=== PATIENT | male | born 2000 | race Caucasian/White ===

== ENCOUNTER 2022-05-27 10:38 | Emergency (ER) | payer SELFPAY ==
[~2022-05-27] VITALS: Ht 190 cm; Wt 72.0 kg
[2022-05-27 10:45] VITALS: BP 121/70
[2022-05-27] MEDS ORDERED: RT-ALBUTEROL HFA 8.5 GM INHALER IH STA (11:06)
--- NOTE | 2022-05-27 11:13 | ED Cough/URI ---
General Chief Complaint: Cough/Cold/Flu Symptoms Stated Complaint: RESPIRATORY ILLNESS Nursing Triage Note: ARRIVED VIA AMB TO TRIAGE WITH COMPLAINTS OF COUGH, FEVER, BODYACHES, HURTS TO COUGH AND BREATHE. WAS SEEN YESTERDAY AND TESTED NEG FOR EVERYTHING. PT ALSO BROUGHT HIS CHILD TO BE SEEN. Source: patient Exam Limitations: no limitations History of Present Illness Date Seen by Provider: May 27, 2022 Time Seen by Provider: 10:46 Initial Comments 22-year-old male with past medical history of asthma coming in due to 3 days of congestion, cough, no shortness of breath. He ran out of his inhaler and is concerned he is having an exacerbation. Has not been admitted to the hospital in over a decade for his asthma. Is otherwise denying any fever, vomiting, diarrhea, chest pain, abdominal pain, weakness, numbness, or any other concerns. Allergies and Home Medications Allergies Coded Allergies: No Known Drug Allergies (Unverified , 05/27/22) Patient Home Medication List Home Medication List Reviewed: Yes Review of Systems Review of Systems Constitutional: No fever EENTM: nose congestion Respiratory: cough Cardiovascular: No chest pain Genitourinary: no symptoms reported Musculoskeletal: no symptoms reported Skin: no symptoms reported Psychiatric/Neurological: No Symptoms Reported Hematologic/Lymphatic: No Symptoms Reported Immunological/Allergic: no symptoms reported All Other Systems Reviewed Negative Unless Noted: Yes Past Kvujwfm-Hcffox-Ghjafp Hx Patient Social History Tobacco Use?: No Use of E-Cig and/or Vaping dev: Yes Substance use?: No Alcohol Use?: Yes Alcohol Frequency: Couple times a week Past Medical History Surgeries: No Physical Exam Vital Signs - First Documented 05/27/22 10:45 Temp 37.0 Pulse 96 Resp 16 B/P (MAP) 121/70 (87) Pulse Ox 98 O2 Delivery Room Air Capillary Refill : Less Than 3 Seconds Height: '" Weight: lbs. oz. kg; 19.00 BMI Method: General Appearance: WD/WN, no apparent distress Eyes: Bilateral Eye Normal Inspection HEENT: PERRL/EOMI, normal ENT inspection, pharynx normal Neck: non-tender, full range of motion, supple, normal inspection Respiratory: chest non-tender, lungs clear, normal breath sounds, no respiratory distress, no accessory muscle use Cardiovascular: regular rate, rhythm, no edema, no murmur Gastrointestinal: normal bowel sounds, non tender, soft; No distended, No guarding Neurologic/Psychiatric: no motor/sensory deficits, alert, normal mood/affect Skin: normal color, warm/dry Lymphatic: no adenopathy Progress/Results/Core Measures Suspected Sepsis SIRS Temperature: Pulse: 96 Respiratory Rate: 16 Blood Pressure 121 /70 Mean: 87 Results/Orders My Orders Orders - DOLORES DE LA ROSA MD Dexamethasone Oral Soln (Ed) (Decadron I (05/27/22 11:06) Albuterol Inhaler (Albuterol) (05/27/22 11:06) Chest 1 View, Ap/Pa Only (05/27/22 11:06) Vital Signs/I&O 05/27/22 10:45 Temp 37.0 Pulse 96 Resp 16 B/P (MAP) 121/70 (87) Pulse Ox 98 O2 Delivery Room Air Capillary Refill : Less Than 3 Seconds Blood Pressure Mean: 87 Progress Note : Progress Note 22-year-old male with above history coming in due to cough and congestion in the setting of having asthma. ABCs were intact and vitals were stable on presentation. Lungs sound clear and he appears comfortable. We will give him an albuterol inhaler here that he can take home. We will also give him a steroid given his history of asthma with exacerbation. He already had viral testing done yesterday which was negative. Chest x-ray here with no obvious pneumonia. I believe he stable for discharge with outpatient follow-up. He was sent home with strict return precautions. Diagnostic Imaging Diagonstic Imaging: Xray (chest) Comments X-ray of the chest ordered and interpreted by me showing no obvious pneumonia, normal cardiac silhouette, no pleural effusion, no pneumothorax Departure Impression Primary Impression: Upper respiratory infection Qualified Codes: J06.9 - Acute upper respiratory infection, unspecified Additional Impression: Bronchitis Disposition: 01 HOME, SELF-CARE Condition: Stable Departure-Patient Inst. Decision time for Depature: 11:35 Referrals: [facility] (PCP/Family) Primary Care Physician Patient Instructions: Viral Upper Respiratory Infection, Adult (DC) Add. Discharge Instructions: You do have a virus which likely is setting of your asthma. You can use the inhaler as needed. The steroid you were given here is long-acting and you shouldn't need another dose. No obvious signs of pneumonia, and therefore no antibiotic would be needed for this. It likely will take over a week to start improving, the cough could be present for longer. Scripts Albuterol Sulfate (Ventolin Hfa) 90 Mcg Hfa.aer.ad 2 PUFF INH Q4H PRN for WHEEZING for 30 Days, #1 EA 1 PUFF = 90 MCG Prov: DOLORES DE LA ROSA MD 05/27/22 Work/School Note: Work Release Form Date Seen in the Emergency Department: May 27, 2022 Return to Work: May 29, 2022 Restrictions: No Restrictions DOLORES DE LA ROSA MD May 27, 2022 11:13
--- NOTE | 2022-05-27 11:37 | Diagnostic Imaging Report ---
INDICATION: Asthma. Cough, febrile. FINDINGS: Portable AP chest shows the lungs to be well aerated and clear. There is no air trapping. No evidence of segmental atelectasis. The heart is not enlarged. No hilar adenopathy. No pneumothorax or pleural effusion. No bony abnormalities. IMPRESSION: Normal portable chest. Dictated by: Dictated on workstation # [id number]
[2022-05-27] MEDS ORDERED: ALBU8.5H6 INH (11:39)
== END 2022-05-27 11:37 | disposition home or self-care (01) ==
LOC: EDUNIT# 10:38 → ER 10:41
DX: J06.9 Acute upper respiratory infection, unspecified (principal); J45.901 Unspecified asthma with (acute) exacerbation; F17.290 Nicotine dependence, other tobacco product, uncomplicated; Z79.52 Long term (current) use of systemic steroids
CPT/HCPCS: 71045

== ENCOUNTER 2022-09-09 11:54 | Emergency (ER) | payer BC ==
[~2022-09-09] VITALS: Ht 193 cm; Wt 72.0 kg
[~2022-09-09 11:54] MED LIST: ALBU8.5H6 INH
--- NOTE | 2022-09-09 13:13 | ED Lower Extremity ---
General Chief Complaint: Lower Extremity Stated Complaint: LT KNEE PAIN, NON-INJ Nursing Triage Note: ARRIVED VIA AMB TO TRIAGE WITH COMPLAINTS OF LEFT KNEE PAIN STARTING YESTERDAY AM. DENIES INJURY. Source: patient Exam Limitations: no limitations History of Present Illness Date Seen by Provider: Sep 09, 2022 Time Seen by Provider: 13:08 Initial Comments Patient is a 22-year-old male who presents to the emergency room with a chief complaint of left knee pain. Patient states that he works night shifts, went to bed around 2 or 3 AM 48 hours ago woke up at around noon, had knee pain that seem to get better throughout the day but again at night began aching woke up with the same pain again today. Hurts to bend and extend. States that he has never had pain like this before. Denies any fevers or chills. No urinary complaints. No incontinence. No back pain. No left hip pain. He has taken ibuprofen, last dose was at 2 or 3 AM last night. States it hurts to walk on it. No prior injuries reported. No numbness tingling or weakness to his foot Onset: other (2d) Pain/Injury Location: left knee Method of Injury: unknown Modifying Factors: Improves With Immobilization Allergies and Home Medications Allergies Coded Allergies: No Known Drug Allergies (Unverified , 05/27/22) Patient Home Medication List Home Medication List Reviewed: Yes Albuterol Sulfate (Ventolin Hfa) 90 Mcg Hfa.aer.ad, 2 PUFF INH Q4H PRN for WHEEZING Prescribed by: DOLORES DE LA ROSA on 05/27/22 1139 Review of Systems Constitutional: see HPI EENTM: no symptoms reported Respiratory: no symptoms reported Cardiovascular: no symptoms reported Gastrointestinal: no symptoms reported Genitourinary: no symptoms reported; No dysuria, No incontinence Musculoskeletal: joint pain (left knee) Skin: no symptoms reported All Other Systems Reviewed Negative Unless Noted: Yes Past Fgtyanj-Kjkyou-Aguhqd Hx Patient Social History Tobacco Use?: Yes Smoking Status: Former Smoker Use of E-Cig and/or Vaping dev: Yes Substance use?: No Alcohol Use?: Yes Alcohol Frequency: Rarely Immunizations Up To Date Second COVID19 Vaccination Torres: UNKNOWN COVID19 Vaccine Zoning Engineer: UNKNOWN Past Medical History Surgeries: No Physical Exam Vital Signs Vital Signs - First Documented 09/09/22 12:10 Temp 36.5 Pulse 65 Resp 16 B/P (MAP) 105/67 (80) Pulse Ox 98 O2 Delivery Room Air Capillary Refill : Less Than 3 Seconds Height, Weight, BMI Height: '" Weight: lbs. oz. kg; 19.00 BMI Method: General Appearance: WD/WN, no apparent distress HEENT: PERRL/EOMI Cardiovascular: regular rate, rhythm Respiratory: no respiratory distress, no accessory muscle use Hips: bilateral hip normal range of motion, bilateral hip no evidence of injury Legs: bilateral leg non-tender, bilateral leg normal inspection, bilateral leg normal range of motion, bilateral leg no evidence of injury Knees: bilateral knee non-tender, bilateral knee normal inspection, bilateral knee no evidence of injury, bilateral knee other (patient will allow passive flexion; will not perform active. No effusion. no erythema. no warmth. patient complains of medial joint line tenderness to palpation.) Ankles: bilateral ankle non-tender, bilateral ankle normal inspection, bilateral ankle normal range of motion, bilateral ankle no evidence of injury Feet: bilateral foot non-tender, bilateral foot normal inspection, bilateral foot normal range of motion, bilateral foot no evidence of injury; left foot other (normal DP and PT pulse) Neurologic/Psychiatric: alert, normal mood/affect, oriented x 3 Skin: normal color, warm/dry Progress/Results/Core Measures Results/Orders My Orders Orders - NICKO JOHNSON MD Ketorolac Injection (Toradol Injection) (09/09/22 13:15) Knee, Left, 3 Views (09/09/22 13:15) Medications Given in ED Current Medications Medications Dose Ordered Sig/Lesa Route Start Time Stop Time Status Last Admin Dose Admin Ketorolac Tromethamine 30 mg ONCE ONCE IM 09/09/22 13:15 09/09/22 13:18 DC 09/09/22 13:29 30 MG Vital Signs/I&O 09/09/22 12:10 Temp 36.5 Pulse 65 Resp 16 B/P (MAP) 105/67 (80) Pulse Ox 98 O2 Delivery Room Air Blood Pressure Mean: 80 Diagnostic Imaging Diagonstic Imaging: Xray Comments [facility], [place] NAME: ALYCIASHAHIDALUBNA TRIPATHI REC#: [id number] PT STATUS: REG ER : 2000 PHYSICIAN: NICKO JOHNSON MD ADMIT DATE: 09/09/22/ER Signed Date of Exam:09/09/22 KNEE, LEFT, 3 VIEWS KNEE, LEFT, 3 VIEWS COMPARISON: None available. INDICATION: Left knee pain TECHNIQUE: Non-weight bearing AP, oblique, and lateral views of the left knee. FINDINGS: No fracture or traumatic malalignment. The joint spaces are well maintained. No knee joint effusion. IMPRESSION: No acute osseous abnormality of the left knee. Dictated by: Dictated on workstation # [id number] Dict: 09/09/22 1331 Trans: 09/09/22 1332 [facility] [id number] Interpreted by: TUCKER METZ MD Electronically signed by: TUCKER METZ MD 09/09/22 133 Departure Impression Primary Impression: Knee pain, left Qualified Codes: M25.562 - Pain in left knee Disposition: 01 HOME, SELF-CARE Condition: Stable Departure-Patient Inst. Decision time for Depature: 13:21 Referrals: [facility] [place] ([place]) Primary Care Physician Patient Instructions: Knee Pain ED Add. Discharge Instructions: You might keep the knee Que wrapped for stability and comfort. Ice packs while at rest for 20 minutes. [id number] ibuprofen 3 tablets with food every 6 hours as needed for pain. Follow-up with primary care/[facility] for further evaluation and management. Work/School Note: Work Release Form Date Seen in the Emergency Department: Sep 09, 2022 Return to Work: Sep 10, 2022 NICKO JOHNSON MD Sep 09, 2022 13:13
[2022-09-09] MEDS ORDERED: KETOROLAC 30 MG/ML VIAL IM ONE (13:15)
--- NOTE | 2022-09-09 13:33 | Diagnostic Imaging Report ---
KNEE, LEFT, 3 VIEWS COMPARISON: None available. INDICATION: Left knee pain TECHNIQUE: Non-weight bearing AP, oblique, and lateral views of the left knee. FINDINGS: No fracture or traumatic malalignment. The joint spaces are well maintained. No knee joint effusion. IMPRESSION: No acute osseous abnormality of the left knee. Dictated by: Dictated on workstation # [id number]
[2022-09-09 13:45] VITALS: BP 105/71
== END 2022-09-09 13:45 | disposition home or self-care (01) ==
LOC: EDUNIT# 11:54 → ER 12:00
DX: M25.562 Pain in left knee (principal); Z87.891 Personal history of nicotine dependence
CPT/HCPCS: 73562